=== PATIENT | male | born 2000 | race Two or more races ===

== ENCOUNTER 2025-03-06 15:48 | Emergency (ER) | payer OTHER, SELFPAY ==
[2025-03-06 17:23] VITALS: BP 133/82; PULSE 63; RESP 16; TEMP 36.6; O2SAT 100; BMI 23.3
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
[2025-03-06] MEDS: COCAINE 4% TOPICAL SOLN 4ML BOTTLE 1 ML TP (17:37)
[2025-03-06] MEDS: LIDOCAINE 2% UROJET 10ML TP (17:38)
[2025-03-06] MEDS: TET/DIPHTH/PERT-ADULT 0.5ML SYRINGE 0.5 ML IM (17:41)
[2025-03-06 18:34] VITALS: BP 129/51; PULSE 55; RESP 16; TEMP 36.7; O2SAT 100
== END 2025-03-06 18:35 | disposition home or self-care (01) ==
PROVIDERS: Emergency Provider Student in an Organized Health Care Education/Training Program
DX: S01.81XA Laceration without foreign body of other part of head, initial encounter (principal); R22.0 Localized swelling, mass and lump, head; W20.8XXA Other cause of strike by thrown, projected or falling object, initial encounter
CPT/HCPCS: 12013; 90471; 90715; 99283; J0169

== ENCOUNTER 2025-03-16 18:04 | Emergency (ER) | payer OTHER, SELFPAY ==
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
[2025-03-16 18:42] VITALS: BP 137/84; PULSE 69; RESP 17; TEMP 37; O2SAT 100; BMI 23.3
--- NOTE | 2025-03-16 18:44 | CT_ITS ---
PROCEDURE INFORMATION: Exam: CT Head Without Contrast Exam date and time: 03/16/2025 7:03 PM Age: 24 years old Clinical indication: Pain; Headache; Additional info: Headache, recent head trauma TECHNIQUE: Imaging protocol: Computed tomography of the head without contrast. Radiation optimization: All CT scans at this facility use at least one of these dose optimization techniques: automated exposure control; mA and/or kV adjustment per patient size (includes targeted exams where dose is matched to clinical indication); or iterative reconstruction. COMPARISON: No relevant prior studies available. FINDINGS: Brain: No acute intracranial hemorrhage, midline shift, or mass effect. Cerebral ventricles: No ventriculomegaly. Paranasal sinuses: Visualized sinuses are unremarkable. No fluid levels. Mastoid air cells: Visualized mastoid air cells are well aerated. Bones: Unremarkable. No acute fracture. Soft tissues: Possible small posterior vertex scalp hematoma. IMPRESSION: 1. No acute intracranial findings. 2. Possible small posterior vertex scalp hematoma.
[2025-03-16 19:15] VITALS: BP 130/77; PULSE 60; O2SAT 100
[2025-03-16] MEDS: IBUPROFEN 800 MG TABLET PO (19:19)
[2025-03-16 19:30] VITALS: BP 126/67; PULSE 61; O2SAT 99
[2025-03-16 19:45] VITALS: BP 127/71; PULSE 60; O2SAT 100
[2025-03-16 20:02] VITALS: BP 127/71; PULSE 66; RESP 16; TEMP 36.7; O2SAT 100
== END 2025-03-16 20:03 | disposition home or self-care (01) ==
PROVIDERS: Emergency Provider Student in an Organized Health Care Education/Training Program
DX: R51.9 Headache, unspecified (principal); F07.81 Postconcussional syndrome; R42 Dizziness and giddiness
CPT/HCPCS: 70450; 99283; 99284